=== PATIENT | female | born 1985 | race Asian ===

== ENCOUNTER 2016-11-01 15:01 | Inpatient (IN) | payer OTHER ==
[2016-11-01] MEDS ORDERED: Oxytocin in LR* 20 UNITS/1,000 ML BAG IVPB SCH (16:00)
[2016-11-01 16:04] LABS: Hematocrit 36 % (35-47); Hemoglobin 12.2 g/dl (12.0-16.0); Mean Corpuscular HGB Conc 34 g/dl (31-36); Mean Corpuscular Hemoglobin 29 pg (27-31); Mean Corpuscular Volume 85 fL (80-97); Mean Platelet Volume 9 um3 (7.4-10.4); Red Blood Count 4.28 10^6/ul (4.0-5.4); Red Cell Distribution Width 15 % (10.5-15); White Blood Count 6.5 10^3/ul (3.5-10.8)
[2016-11-01] MEDS ORDERED: OBEPIDURAL* 250 ML ONE (19:03)
[2016-11-01] MEDS ORDERED: Phenylephrine IV* 40 MCG/ML 10 ML SYRINGE IV PUSH PRN ×2 (19:52)
[2016-11-01] MEDS ORDERED: Famotidine TAB* 20 MG PO PRN (19:52)
[2016-11-01] MEDS ORDERED: Sodium Citrate/Citric Acid* 15 ML UDC PO PRN (19:52)
[2016-11-01] MEDS ORDERED: EPHEDrine (Pressors)* 50 MG/ML VIAL IV PUSH PRN ×2 (19:52)
[2016-11-01] MEDS ORDERED: OBEPIDURAL* 250 ML EPIDURAL SCH (20:00)
[2016-11-01] MEDS ORDERED: Insulin REGULAR(*) 100 UNITS in NS 0.9% 100 ML* 100 ML IVPB SCH (22:00)
[2016-11-02] MEDS ORDERED: Dibucaine 1% 28.35 GM TUBE PR PRN (07:42)
[2016-11-02] MEDS ORDERED: Glycerin ADULT SUPP PR PRN (07:42)
[2016-11-02] MEDS ORDERED: Acetaminophen TAB* 325 MG PO PRN (07:42)
[2016-11-02] MEDS ORDERED: Witch Hazel PAD* JAR TOPICAL PRN (07:42)
[2016-11-02] MEDS ORDERED: Oxytocin in LR* 20 UNITS/1,000 ML BAG IVPB SCH (08:00)
[2016-11-02] MEDS: Docusate CAP* 100 MG PO SCH ×3 (09:01→21:48)
[2016-11-02] MEDS: Ibuprofen TAB* 600 MG PO PRN ×3 (09:02→23:03)
[2016-11-02] MEDS ORDERED: Ammonia Inhalant* 1 EA AMP ONE (10:17)
[2016-11-02] MEDS: Simethicone TAB* 80 MG TAB.CHEW PO SCH (21:49)
[2016-11-03] MEDS: Ibuprofen TAB* 600 MG PO PRN ×3 (05:33→20:27)
[2016-11-03 06:59] LABS: Hematocrit 25 % (35-47); Hemoglobin 8.3 g/dl (12.0-16.0); Mean Corpuscular HGB Conc 33 g/dl (31-36); Mean Corpuscular Hemoglobin 29 pg (27-31); Mean Corpuscular Volume 86 fL (80-97); Mean Platelet Volume 8 um3 (7.4-10.4); Red Cell Distribution Width 15 % (10.5-15); White Blood Count 8.6 10^3/ul (3.5-10.8)
[2016-11-03 07:11] LABS: Comments Flag Yes
[2016-11-03 07:12] LABS: Add Diff/Slide Review? Slide Review Added
[2016-11-03] MEDS: Docusate CAP* 100 MG PO SCH ×3 (08:42→20:25)
[2016-11-03] MEDS: Ferrous Gluconate TAB* 324 MG TAB PO SCH ×2 (08:43→20:26)
[2016-11-04] MEDS: Ibuprofen TAB* 600 MG PO PRN ×2 (02:16→08:17)
[2016-11-04 07:25] LABS: Hematocrit 25 % (35-47); Hemoglobin 8.4 g/dl (12.0-16.0); Mean Corpuscular HGB Conc 34 g/dl (31-36); Mean Corpuscular Hemoglobin 29 pg (27-31); Mean Corpuscular Volume 86 fL (80-97); Mean Platelet Volume 9 um3 (7.4-10.4); Red Blood Count 2.92 10^6/ul (4.0-5.4); Red Cell Distribution Width 15 % (10.5-15); White Blood Count 8.2 10^3/ul (3.5-10.8)
[2016-11-04 08:02] VITALS: BP 115/80
--- NOTE | 2016-11-04 08:06 | PTEDU ---
Patient Name: SMOOTH GUERRERO SMOOTH GUERRERO selected video: Never Ever Shake a Baby to view on 11/04/2016 at 8:05:37 AM [id number]
[2016-11-04] MEDS: Ferrous Gluconate TAB* 324 MG TAB PO SCH (08:17)
[2016-11-04] MEDS: Docusate CAP* 100 MG PO SCH (08:17)
--- NOTE | 2016-11-04 10:32 | PTEDU ---
Patient Name: SMOOTH GUERRERO SMOOTH GUERRERO selected video: BBOB: Bonding Through Infant Massage to view on 11/04/2016 at 10:31:11 AM [id number]
== END 2016-11-04 11:46 | disposition home or self-care (01) | DRG 775 ==
LOC: MCHOBOUT 15:01 → MCHOB 15:35
PROVIDERS: ADMIT Obstetrics & Gynecology; ATTEND Obstetrics & Gynecology
PROC: 10E0XZZ Delivery of Products of Conception, External Approach (ICD-10-PCS; principal; 2016-11-02)
PROC: 3E033VJ Introduction of Other Hormone into Peripheral Vein, Percutaneous Approach (ICD-10-PCS; 2016-11-02)
PROC: 10907ZC Drainage of Amniotic Fluid, Therapeutic from Products of Conception, Via Natural or Artificial Opening (ICD-10-PCS; 2016-11-02)
PROC: 0W8NXZZ Division of Female Perineum, External Approach (ICD-10-PCS; 2016-11-02)
DX: O24.420 Gestational diabetes mellitus in childbirth, diet controlled (principal); D25.2 Subserosal leiomyoma of uterus; O34.13 Maternal care for benign tumor of corpus uteri, third trimester; O69.9XX0 Labor and delivery complicated by cord complication, unspecified, not applicable or unspecified; Z3A.39 39 weeks gestation of pregnancy; Z37.0 Single live birth
CPT/HCPCS: 36415; 85025; 85027; 85060; 86850; 86900; 86901; A9270-GY; J1815